=== PATIENT | male | born 1995 | race Hispanic/Latino ===

== ENCOUNTER 2021-01-27 11:22 | Emergency (ER) | payer BC ==
--- OUTSIDE RECORDS SUMMARY | 2021-01-27 11:26 | XMS REPORT | Continuity of Care Document ---
:1995 Author Organization [facility] t Address [address] [place] [address] Care Team Providers Name Role Phone Unavailable Unavailable Unavailable Problems This patient has no known problems. Allergies, Adverse Reactions, Alerts This patient has no known allergies or adverse reactions. Social History Smoking Status Start Date Stop Date Source Former Smoker [facility] Medications Ordered Filled Start Stop Current Ordering Indication Dosage Frequency Signature Comments Components Source Medication Medication Date Date Medication? Clinician (SIG) Name Name amoxicillin amoxicillin No 1 Q12H amoxicilli Saundra [id number] n 875 da mg-potassiu mg-potassiu mg-potassi [facility] clavulanate clavulanate clavulanat Health 125 mg 125 mg e 125 mg Outreac tablet Take tablet Take tablet h 1 tablet 1 tablet Take 1 Progr am every 12 every 12 tablet hours by hours by every 12 oral route oral route hours by as directed as directed oral route for 10 for 10 as days. days. directed for 10 days. Vital Signs Vital Name Observation Time Observation Value Comments Source BP Diastolic 2021-01-23 00:00:00 84 mm[Hg] [facility] Height 2021-01-23 00:00:00 69 [in_i] [facility] BMI (Body Mass 2021-01-23 00:00:00 45.2 kg/m2 [facility] BP Systolic 2021-01-23 00:00:00 130 mm[Hg[facility] Body Weight 2021-01-23 00:00:00 4896 [oz_av] [facility] Procedures This patient has no known procedures. Plan of Care Planned Activity Planned Date Details Comments Source Diagnostic Test 2021-01-23 SARS CoV 2 RNA [place] Pending 00:00:00 (COVID-19), QL, [facility] information technology intern-PCR, respiratory Outreac h Program specimen [code = SARS CoV 2 RNA (COVID-19), QL, information technology intern-PCR, respiratory specimen] Encounters Start End Encounter Admission Attending Care Care Encounter Source Date/Time Date/Time Type Type Clinicians Facility Department ID 2021-01-23 2021-01-23 [facility] [id number] at[place] 00:00:00 00:00:00 Berna Henry APRN-HEAD REFRIGERATING ENGINEER-C: [facility] [address] [facility] [place], [facility] [id number] [facility] am , Ph. Results This patient has no known results.
--- NOTE | 2021-01-27 13:46 | RAD REPORT ---
EXAM DESCRIPTION: Becca Pa And Lat (2 Views)01/27/2021 1:36 pm CLINICAL HISTORY: Cough COMPARISON: None FINDINGS: Moderate bilateral pulmonary opacities. The heart is normal size IMPRESSION: Moderate bilateral pulmonary opacities likely pneumonia
--- NOTE | 2021-01-27 13:51 | ER ---
Nurse's Notes [facility] Name: Jason Chan Age: 25 yrs Sex: Male : 1995 Arrival Date: 01/27/2021 Time: 11:24 Bed Waiting Private MD: Diagnosis: Coronavirus infection, unspecified;Viral pneumonia, unspecified Presentation: 01/27 13:13 Chief complaint: Patient states: COVID and strep + x 1 week, fever wont stay down and jl7 pain to diaphragm with cough. Coronavirus screen: Client denies travel out of the [place] in the last 14 days. Client presents with at least one sign or symptom that may indicate coronavirus-19. Standard/surgical mask placed on the client. Provider contacted for isolation considerations. Client reports previous positive COVID test result. Ebola Screen: No symptoms or risks identified at this time. Initial Sepsis Screen: Does the patient meet any 2 criteria? No. Patient's initial sepsis screen is negative. Does the patient have a suspected source of infection? No. Patient's initial sepsis screen is negative. Risk Assessment: Do you want to hurt yourself or someone else? Patient reports no desire to harm self or others. Onset of symptoms is unknown. 13:13 Method Of Arrival: Ambulatory [facility] 13:13 Acuity: RENALDO 4 jl7 Triage Assessment: 13:14 General: Appears in no apparent distress. uncomfortable, Behavior is calm, cooperative, jl7 appropriate for age. Pain: Complains of pain in diaphragm Pain currently is 0 out of 10 on a pain scale. at worst was 9 out of 10 on a pain scale. Cardiovascular: Patient's skin is warm and dry. Respiratory: Airway is patent Respiratory effort is even, unlabored, Respiratory pattern is regular, symmetrical. GI: Reports vomiting. Derm: Skin is pink, warm \T\ dry. Historical: - Allergies: 13:14 No Known Allergies; jl7 - Home Meds: 13:14 None [Active]; jl7 - PMHx: 13:14 None; jl7 - PSHx: 13:14 None; jl7 - Immunization history:: Adult Immunizations unknown, Client reports having NOT received the Covid vaccine. - Social history:: Smoking status: Patient denies any tobacco usage or history of. Screenin:11 Abuse screen: Denies threats or abuse. Denies injuries from another. Nutritional jl7 screening: No deficits noted. Tuberculosis screening: No symptoms or risk factors identified. Fall Risk None identified. Assessment: 13:05 Reassessment: SAMUEL Martinez in triage assessing pt. jl7 Vital Signs: 13:13 BP 141 / 86; Pulse 107; Resp 17; Temp 98; Pulse Ox 100% on R/A; Weight 145.15 kg; jl7 Height 5 ft. 9 in. (175.26 cm); Pain 9/10; 13:13 Body Mass Index 47.26 (145.15 kg, 175.26 cm) jl7 ED Course: 11:24 Patient arrived in ED. as 11:33 Michelle Sears F[facility]-C [facility] kb 11:33 Jermaine Escoto MD is Attending Physician. kb 13:14 Triage completed. jl7 13:14 Arm band placed on right wrist. jl7 13:16 Patient placed in waiting room, Patient notified of wait time. jl7 13:33 Chest Pa And Lat (2 Views) XRAY In Process Unspecified. EDMS 14:11 Patient has correct armband on for positive identification. jl7 14:11 No provider procedures requiring assistance completed. Patient did not have IV access jl7 during this emergency room visit. Administered Medications: No medications were administered Outcome: 13:50 Discharge ordered by . kb 14:11 Discharged to home ambulatory. jl7 14:11 Condition: stable 14:11 Discharge instructions given to patient, Instructed on discharge instructions, follow up and referral plans. Demonstrated understanding of instructions, follow-up care. 14:11 Patient left the ED. jl7 Signatures: Dispatcher [employer] EDMS Michelle Sears FNP-C FNP-Kerri Sanchez Jahala, RN RN jl7
--- NOTE | 2021-01-27 13:51 | EDPHYS ---
Physician Documentation [facility] Name: Jason Chan Age: 25 yrs Sex: Male : 1995 Arrival Date: 01/27/2021 Time: 11:24 Bed Waiting Private MD: ED Physician Jermaine Escoto HPI: 01/27 16:52 This 25 yrs old Male presents to ER via Ambulatory with complaints of Fever, kb Cough, Vomiting, Covid+/Strep +. 16:52 The patient or guardian reports cough, that is intermittent, described as mild, flu kb symptoms, low-grade fever, myalgias. Onset: The symptoms/episode began/occurred 1 week(s) ago. Severity of symptoms: At their worst the symptoms were moderate, in the emergency department the symptoms are unchanged. Modifying factors: The symptoms are alleviated by nothing, the symptoms are aggravated by nothing. Associated signs and symptoms: Pertinent positives: chest pain, fever, sore throat. The patient has not experienced similar symptoms in the past. The patient has not recently seen a physician. Patient reports he has had cough fever congestion for a week. Tested positive for strep and Covid 2 days ago. Patient is on antibiotics for strep. Came in today because he still running fever and does not feel it is any better yet.. Historical: - Allergies: 13:14 No Known Allergies; jl7 - Home Meds: 13:14 None [Active]; jl7 - PMHx: 13:14 None; jl7 - PSHx: 13:14 None; jl7 - Immunization history:: Adult Immunizations unknown, Client reports having NOT received the Covid vaccine. - Social history:: Smoking status: Patient denies any tobacco usage or history of. ROS: 16:51 Abdomen/GI: Negative for abdominal pain, nausea, vomiting, diarrhea, and constipation. kb 16:51 Constitutional: Positive for fever. 16:51 Cardiovascular: Positive for chest pain, with cough, of the diaphragm. 16:51 Respiratory: Positive for cough, Negative for dyspnea on exertion, hemoptysis, orthopnea, pleurisy, shortness of breath, sputum production, wheezing. 16:51 All other systems are negative. Exam: 16:51 Constitutional: This is a well developed, well nourished patient who is awake, alert, kb and in no acute distress. Head/Face: Normocephalic, atraumatic. ENT: Moist Mucous membranes Cardiovascular: Regular rate and rhythm with a normal S1 and S2. No gallops, murmurs, or rubs. No pulse deficits. Respiratory: Respirations even and unlabored. No increased work of breathing, no retractions or nasal flaring. Skin: Warm, dry with normal turgor. Normal color. MS/ Extremity: Pulses equal, no cyanosis. Neurovascular intact. Full, normal range of motion. Neuro: Awake and alert, GCS 15, oriented to person, place, time, and situation. Moves all extremities. Normal gait. Psych: Awake, alert, with orientation to person, place and time. Behavior, mood, and affect are within normal limits. Vital Signs: 13:13 BP 141 / 86; Pulse 107; Resp 17; Temp 98; Pulse Ox 100% on R/A; Weight 145.15 kg; jl7 Height 5 ft. 9 in. (175.26 cm); Pain 9/10; 13:13 Body Mass Index 47.26 (145.15 kg, 175.26 cm) jl7 MDM: 13:12 Patient medically screened. kb 16:50 Data reviewed: vital signs, nurses notes. Data interpreted: Pulse oximetry: on room air kb is 100 %. Interpretation: normal. Counseling: I had a detailed discussion with the patient and/or guardian regarding: the historical points, exam findings, and any diagnostic results supporting the discharge/admit diagnosis, radiology results, the need for outpatient follow up, a family practitioner, to return to the emergency department if symptoms worsen or persist or if there are any questions or concerns that arise at home. 01/27 13:12 Order name: Chest Pa And Lat (2 Views) XRAY; Complete Time: 13:49 kb Administered Medications: No medications were administered Disposition: 19:29 Co-signature as Attending Physician, Jermaine Escoto MD I agree with the assessment and kdr plan of care. Disposition Summary: 01/27/21 13:50 Discharge Ordered Location: Home kb Condition: Stable kb Diagnosis - Coronavirus infection, unspecified kb - Viral pneumonia, unspecified kb Followup: kb - With: Emergency Department - When: As needed - Reason: Worsening of condition Followup: kb - With: Private Physician - When: 2 - 3 days - Reason: Recheck today's complaints, Continuance of care, Re-evaluation by your physician Discharge Instructions: - Discharge Summary Sheet kb - Viral Respiratory Infection, [id number] kb - COVID-19 kb Forms: - Medication Reconciliation Form kb - Thank You Letter kb - Antibiotic Education kb - Prescription Opioid Use kb Signatures: Dispatcher [employer] EDMichelle Cruz, LIANAC Jermaine Juarez MD MD kdr Leal, Jahala RN RN jl7
[2021-01-27 15:00] VITALS: BP 141/86; TEMP 98; O2SAT 100
== END 2021-01-27 14:11 | disposition home or self-care (01) ==
LOC: ER 11:22
DX: U07.1 COVID-19 (principal); J12.9 Viral pneumonia, unspecified
CPT/HCPCS: 71046; 99283